=== PATIENT | male | born 1990 | race Asian ===

== ENCOUNTER 2017-01-04 17:12 | Observation (INO) | payer OTHER ==
[2017-01-04] MEDS ORDERED: NS 0.9% 1000 ML* 1,000 ML IV ONE (17:26)
[2017-01-04] MEDS ORDERED: Ondansetron INJ* 2 MG/ML VIAL IV ONE (18:01)
[2017-01-04] MEDS ORDERED: Ondansetron INJ* 2 MG/ML VIAL ONE (18:02)
[2017-01-04] MEDS ORDERED: Morphine INJ* 4 MG/ML 1 ML SYRINGE IV ONE (18:07)
[2017-01-04 18:11] LABS: Hematocrit 44 % (42-52); Hemoglobin 15.1 g/dl (14.0-18.0); Mean Corpuscular HGB Conc 34 g/dl (31-36); Mean Corpuscular Hemoglobin 31 pg (27-31); Mean Corpuscular Volume 90 fL (80-94); Mean Platelet Volume 9 um3 (7.4-10.4); Red Blood Count 4.91 10^6/ul (4.0-5.4); Red Cell Distribution Width 13 % (10.5-15); White Blood Count 16.9 10^3/ul (3.5-10.8)
[2017-01-04 18:14] LABS: Urine Bacteria Absent (Absent); Urine Bilirubin Negative (Negative); Urine Glucose Negative (Negative); Urine Nitrite Negative (Negative)
[2017-01-04 18:31] LABS: ALT 21 U/L (7-52); AST 17 U/L (13-39); Albumin 4.8 g/dL (3.2-5.2); Alkaline Phosphatase 56 U/L (34-104); Anion Gap 12 mmol/L (2-11); BUN/Creatinine Ratio 19.1 (8-20); Blood Urea Nitrogen 18 mg/dL (6-24); C Reactive Protein < 1.00 mg/L (< 5.00); CO2 Carbon Dioxide 23 mmol/L (22-32); Calcium 10.3 mg/dL (8.6-10.3); Chloride 103 mmol/L (101-111); EGFR African American 126.8 (>60); EGFR Non-African American 98.6 (>60); Globulin 2.7 g/dL (2-4); Glucose 120 mg/dL (70-100); Lipase 11 U/L (11.0-82.0); Potassium 3.5 mmol/L (3.5-5.0); Sodium 138 mmol/L (133-145); Total Protein 7.5 g/dL (6.4-8.9)
[2017-01-04] MEDS: NS 0.9% 1000 ML* 2,000 ML IV ONE ×2 (18:37→18:38)
[2017-01-04] MEDS ORDERED: Iohexol 300* (CONTRAST) 10 ML SDV IV ONE (19:06)
--- NOTE | 2017-01-04 20:58 | RAD ---
Indication: Right lower quadrant pain. Contrast: Administered 85.2 ml of OMNIPAQUE 300 mg/ml CT of the abdomen and pelvis was performed after oral and IV contrast administration. Coronal and sagittal reconstructed images were obtained. Lung bases demonstrate no pleural fluid, nodules or masses. Heart is of normal size without evidence of pericardial effusion. Liver is normal in size. No focal lesions or intrahepatic ductal dilatation is noted. The gallbladder demonstrates no calcified gallstones. No pericholecystic fluid or wall thickening is identified. The common duct is not dilated. The pancreas demonstrates no mass or pancreatic duct dilatation. The spleen is normal in size. No adrenal masses are noted. The kidneys demonstrate symmetric nephrograms. No hydronephrosis in either kidney is noted. No retroperitoneal lymphadenopathy is noted. Contrast is noted in the right colon. The distal half of the appendix may be mildly enlarged. The possibility of appendicitis involving the distal half of the appendix should BE considered. The proximal part appears to be filled with contrast and is thin-walled. The urinary bladder is unremarkable. No hernias are identified. There is stool throughout the colon. IMPRESSION: THERE IS SUGGESTION OF SOME INFLAMMATION OF THE DISTAL HALF OF THE APPENDIX AND THE POSSIBILITY OF APPENDICITIS OF THE DISTAL HALF OF THE APPENDIX SHOULD BE CONSIDERED. THE PROXIMAL HALF APPEARS TO BE OF NORMAL CALIBER. CLINICAL CORRELATION IS SUGGESTED. NO OTHER MASSES OR FLUID COLLECTIONS ARE NOTED.
--- NOTE | 2017-01-04 22:30 | ED ---
Girish Booker Nikita, scribed for Armin Purvis MD on 01/04/17 at 1815 . Abdominal Pain/Male - HPI Summary HPI Summary: This patient is a 26 year old M BIBA to [facility] with a chief complaint of RLQ abdominal pain since 1500. The CC is described as acute and constant. The patient rates the pain 10/10 in severity. Symptoms aggravated by palpation and movement of the R leg. Symptoms alleviated by nothing. Patient reports nausea, and vomiting. Patient denies testicular pain, urination symptoms, dysuria, hematuria, RUQ abdominal pain, R back pain. Pt denies PSHx. - History of Current Complaint Chief Complaint: EDAbdPain Stated Complaint: ABD PAIN Time Seen by Provider: 01/04/17 17:26 Hx Obtained From: Patient Onset/Duration: Sudden Onset, Lasting Hours - Since 1500 Timing: Constant Severity Initially: Severe Severity Currently: Severe Pain Intensity: 10 Pain Scale Used: 0-10 Numeric Location: Discrete At: RLQ Aggravating Factor(s): Movement - Movement of R leg, Other: - Palpation Alleviating Factor(s): Nothing Associated Signs And Symptoms: Positive: Other - Patient reports nausea and vomiting. Patient denies testicular pain, urination symptoms, dysuria, hematuria , no RUQ abdominal pain, R back pain. - Allergies/Home Medications Allergies/Adverse Reactions: Allergies Allergy/AdvReac Type Severity Reaction Status Date / Time No Known Allergies Allergy Verified 01/04/17 17:58 PMH/Surg Hx/FS Hx/Imm Hx Endocrine/Hematology History: Denies: Hx Diabetes Cardiovascular History: Denies: Hx Coronary Artery Disease, Hx Hypertension Infectious Disease History: No Infectious Disease History: Reports: Traveled Outside the [place] in Last 30 Days - Family History Known Family History: Negative: Cardiac Disease, Hypertension, Diabetes - Social History Alcohol Use: None Substance Use Type: Reports: None Smoking Status (MU): Never Smoked Tobacco Review of Systems Positive: Abdominal Pain - RLQ, Vomiting, Nausea, Other - NEGATIVE: RUQ pain Positive: no symptoms reported, other - NEGATIVE: testicular pain. Negative: dysuria, hematuria Positive: Other - NEGATIVE: right back pain All Other Systems Reviewed And Are Negative: Yes Physical Exam - Summary Physical Exam Summary: General: well-appearing, Moderate to severe pain distress Skin: warm, color reflects adequate perfusion, dry Head: normal Eyes: EOMI, LARISSA ENT: normal Neck: supple, nontender Respiratory: CTA, breath sounds present Cardiovascular: RRR Abdomen: soft, tender in RLQ Bowel: present, hyper bowel sounds Musculoskeletal: normal, strength/ROM intact Neurological: normal, sensory/motor intact, A&O x3 Psychological: affect/mood appropriate Triage Information Reviewed: Yes Vital Signs On Initial Exam: Initial Vitals Temp Pulse Resp BP Pulse Ox 98.8 F 100 20 124/72 100 01/04/17 17:17 01/04/17 17:17 01/04/17 17:17 01/04/17 17:17 01/04/17 17:17 Vital Signs Reviewed: Yes - José Luis Coma Scale Coma Scale Total: 15 Diagnostics - Vital Signs Vital Signs Temp Pulse Resp BP Pulse Ox 01/04/17 17:18 82 100 01/04/17 17:17 98.8 F 100 20 124/72 100 - Laboratory Lab Results: Lab Results 01/04/17 01/04/17 01/04/17 Range/Units 17:45 17:56 17:56 WBC (3.5-10.8) 10^3/ul RBC (4.0-5.4) 10^6/ul Hgb (14.0-18.0) g/dl Hct (42-52) % MCV (80-94) fL MCH (27-31) pg MCHC (31-36) g/dl RDW (10.5-15) % Plt Count (150-450) 10^3/ul MPV (7.4-10.4) um3 Neut % (Auto) (38-83) % Lymph % (Auto) (25-47) % Glacier % (Auto) (1-9) % Eos % (Auto) (0-6) % Baso % (Auto) (0-2) % Absolute Neuts (auto) (1.5-7.7) 10^3/ul Absolute Lymphs (auto) (1.0-4.8) 10^3/ul Absolute Monos (auto) (0-0.8) 10^3/ul Absolute Eos (auto) (0-0.6) 10^3/ul Absolute Basos (auto) (0-0.2) 10^3/ul Absolute Nucleated RBC 10^3/ul Nucleated RBC % INR (Anticoag Therapy) 0.98 (0.89-1.11) APTT 21.4 L (26.0-36.3) seconds Sodium 138 (133-145) mmol/L Potassium 3.5 (3.5-5.0) mmol/L Chloride 103 (101-111) mmol/L Carbon Dioxide 23 (22-32) mmol/L Anion Gap 12 H (2-11) mmol/L BUN 18 (6-24) mg/dL Creatinine 0.94 (0.67-1.17) mg/dL Est GFR ( Amer) 126.8 (>60) Est GFR (Non-Af Amer) 98.6 (>60) BUN/Creatinine Ratio 19.1 (8-20) Glucose 120 H (70-100) mg/dL Lactic Acid (0.5-2.0) mmol/L Calcium 10.3 (8.6-10.3) mg/dL Total Bilirubin 0.80 (0.2-1.0) mg/dL AST 17 (13-39) U/L ALT 21 (7-52) U/L Alkaline Phosphatase 56 (34-104) U/L C-Reactive Protein < 1.00 (< 5.00) mg/L Total Protein 7.5 (6.4-8.9) g/dL Albumin 4.8 (3.2-5.2) g/dL Globulin 2.7 (2-4) g/dL Albumin/Globulin Ratio 1.8 (1-3) Lipase 11 (11.0-82.0) U/L Urine Color Yellow Urine Appearance Clear Urine pH 8.0 (5-9) Ur Specific Cosmos 1.019 (1.010-1.030) Urine Protein 1+(30 mg/dl) H (Negative) Urine Ketones 1+ H (Negative) Urine Blood Negative (Negative) Urine Nitrate Negative (Negative) Urine Bilirubin Negative (Negative) Urine Urobilinogen Negative (Negative) Ur Leukocyte Esterase Negative (Negative) Urine WBC (Auto) Trace(0-5/hpf) (Absent) Urine RBC (Auto) 1+(3-5/hpf) H (Absent) Urine Bacteria Absent (Absent) Urine Glucose Negative (Negative) Urine Ascorbic Acid * H (Negative) 01/04/17 01/04/17 Range/Units 17:56 17:56 WBC 16.9 H (3.5-10.8) 10^3/ul RBC 4.91 (4.0-5.4) 10^6/ul Hgb 15.1 (14.0-18.0) g/dl Hct 44 (42-52) % MCV 90 (80-94) fL MCH 31 (27-31) pg MCHC 34 (31-36) g/dl RDW 13 (10.5-15) % Plt Count 231 (150-450) 10^3/ul MPV 9 (7.4-10.4) um3 Neut % (Auto) 87.9 H (38-83) % Lymph % (Auto) 7.3 L (25-47) % Glacier % (Auto) 4.1 (1-9) % Eos % (Auto) 0.1 (0-6) % Baso % (Auto) 0.6 (0-2) % Absolute Neuts (auto) 14.8 H (1.5-7.7) 10^3/ul Absolute Lymphs (auto) 1.2 (1.0-4.8) 10^3/ul Absolute Monos (auto) 0.7 (0-0.8) 10^3/ul Absolute Eos (auto) 0 (0-0.6) 10^3/ul Absolute Basos (auto) 0.1 (0-0.2) 10^3/ul Absolute Nucleated RBC 0.01 10^3/ul Nucleated RBC % 0 INR (Anticoag Therapy) (0.89-1.11) APTT (26.0-36.3) seconds Sodium (133-145) mmol/L Potassium (3.5-5.0) mmol/L Chloride (101-111) mmol/L Carbon Dioxide (22-32) mmol/L Anion Gap (2-11) mmol/L BUN (6-24) mg/dL Creatinine (0.67-1.17) mg/dL Est GFR ( Amer) (>60) Est GFR (Non-Af Amer) (>60) BUN/Creatinine Ratio (8-20) Glucose (70-100) mg/dL Lactic Acid 4.0 H* (0.5-2.0) mmol/L Calcium (8.6-10.3) mg/dL Total Bilirubin (0.2-1.0) mg/dL AST (13-39) U/L ALT (7-52) U/L Alkaline Phosphatase (34-104) U/L C-Reactive Protein (< 5.00) mg/L Total Protein (6.4-8.9) g/dL Albumin (3.2-5.2) g/dL Globulin (2-4) g/dL Albumin/Globulin Ratio (1-3) Lipase (11.0-82.0) U/L Urine Color Urine Appearance Urine pH (5-9) Ur Specific Cosmos (1.010-1.030) Urine Protein (Negative) Urine Ketones (Negative) Urine Blood (Negative) Urine Nitrate (Negative) Urine Bilirubin (Negative) Urine Urobilinogen (Negative) Ur Leukocyte Esterase (Negative) Urine WBC (Auto) (Absent) Urine RBC (Auto) (Absent) Urine Bacteria (Absent) Urine Glucose (Negative) Urine Ascorbic Acid (Negative) Result Diagrams: 01/04/17 17:56 01/04/17 17:56 Lab Statement: Any lab studies that have been ordered have been reviewed, and results considered in the medical decision making process. - CT Abd/Pel CT Interpretation Completed By: Radiologist - THERE IS SUGGESTION OF SOME INFLAMMATION OF THE DISTAL HALF OF THE APPENDIX AND THE POSSIBILITY OF APPENDICITIS OF THE DISTAL HALF OF THE APPENDIX SHOULD BE CONSIDERED. THE PROXIMAL HALF APPEARS TO BE OF NORMAL CALIBER. CLINICAL CORRELATION IS SUGGESTED. NO OTHER MASSES OR FLUID COLLECTIONS ARE NOTED. ED physician has reviewed this radiology report and agrees. Re-Evaluation - Re-Evaluation First Eval Re-Evaluation Time: 21:48 Change: Improved - 2/10 Comment: Discuss with pt. Pt states his pain is now a 2/10. Pt is mildly tender at RLQ. Abdominal Pain Fem Course/Dx - Course Course Of Treatment: PAIN DECREASED IN ED BUT, PATIENT STILL MILDLY TENDER TO PALPATION IN RLQ. DISCUSSED WITH DR ADAMS, HE WILL ADMIT FOR OBSERVATION. THIS WAS ALL DISCUSSED WITH THE PATIENT/. - Diagnoses Provider Diagnoses: Abdominal pain - Provider Notifications Discussed Care Of Patient With: Salvatore Adams Time Discussed With Above Provider: 21:42 Instructed by Provider To: Other - Consulted Dr. Adams about the pt who says he will look at the pt's CT report first. Consulted Dr. Adams about the pt at 2156 who says he will observe him overnight to see if his condition improves. Discharge - Discharge Plan Condition: Stable Disposition: ADMITTED TO [facility] Referrals: WILLIAM Sanders [Primary Care Provider] - The documentation as recorded by the Girihs quesada Nikita accurately reflects the service I personally performed and the decisions made by me, Armin Purvis MD.
[2017-01-04] MEDS ORDERED: Ketorolac INJ* 15 MG/ML 1 ML VIAL IV PUSH PRN (23:44)
[2017-01-04] MEDS ORDERED: Ondansetron INJ* 2 MG/ML VIAL IV PRN (23:44)
[2017-01-05 05:15] LABS: Hematocrit 38 % (42-52); Hemoglobin 12.8 g/dl (14.0-18.0); Mean Corpuscular HGB Conc 34 g/dl (31-36); Mean Corpuscular Hemoglobin 31 pg (27-31); Mean Corpuscular Volume 90 fL (80-94); Mean Platelet Volume 8 um3 (7.4-10.4); Red Blood Count 4.19 10^6/ul (4.0-5.4); Red Cell Distribution Width 13 % (10.5-15); White Blood Count 8.8 10^3/ul (3.5-10.8)
--- NOTE | 2017-01-05 08:51 | HP ---
CC: [facility]* HISTORY AND PHYSICAL: DATE OF ADMISSION: 01/05/17 CHIEF COMPLAINT: Right localized abdominal pain. 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 He was in class at the time and reports that the pain was very sudden onset and he had never experienced a similar pain in the past. He went to the bathroom to try to void, urinate, but he did not have any improvement in his pain, and in fact the pain was severe and led his professor to direct him to the emergency room. He was brought to the emergency room and there, reports that while he was waiting for a period of hours, his pain became at times unbearable and brought him to his knees. He notes that after 5 or 6 hours, his pain resolved completely. He did not require any pain medication. He did not have any issues with fevers or chills. He had some nausea, reports that he did not eat anything from about 12 p.m. on 01/04/17. He had noted his urine was yellow, denies any hematuria or dysuria. The emergency room data showed elevation of his WBCs to 16.9, and he was sent for CT scan of the abdomen and pelvis with oral and IV contrast. This was notable for the distal half of the appendix possibly being enlarged and possibly the possibility of appendicitis, but otherwise the CT scan was normal. Of note, the patient's urinalysis did show 1 + rbc's, 1+ protein, and ascorbic acid present. A surgical admission was requested. The patient at present denies any pain, denies nausea or vomiting, denies any fevers or chills. He has not required any pain medication, and he reports he has voided multiple times without difficulty. He reports his pain seemed to resolve suddenly as it had started. PAST MEDICAL HISTORY: The patient has a history of tachycardia, states his resting heart rate is usually about 100 beats per minute. PAST SURGICAL HISTORY: None. MEDICATIONS: None. ALLERGIES: None. FAMILY HISTORY: Father has rapid heart rate. SOCIAL HISTORY: The patient is a student at [employer]. He does not smoke, does not drink alcohol or use drugs. REVIEW OF SYSTEMS: A 12-point review of systems is completed and is significant for the above-mentioned issues, otherwise is negative. PHYSICAL EXAMINATION VITAL SIGNS: Temperature 99.4, pulse 106, respirations 16, blood pressure 124/ 57, O2 sat 97%. HEENT: Head normocephalic and atraumatic. Sclerae anicteric and mucous membranes moist. No otorrhea. No rhinorrhea. NECK: Symmetrical with trachea midline. No palpable lymphadenopathy or masses. LUNGS: Clear to auscultation bilaterally without wheezes, rales, or rhonchi. HEART: Regular S1, S2. No murmurs, rubs, or gallops appreciated. He is tachycardic. ABDOMEN: Without scars. It is nondistended. Bowel sounds are present. It is soft, nontender, and there are no palpable masses. There is no hepatosplenomegaly. EXTREMITIES: Warm without cyanosis, clubbing, or edema. DIAGNOSTIC STUDIES/LAB DATA: Repeat WBCs are 8.8, hemoglobin of 12.8, hematocrit of 38, platelets 210, normal differential. Chemistries, on initial evaluation, he was noted to have glucose of 120. The remaining comprehensive metabolic panel was within normal range. CRP was normal less than 1. Lactic acid was 4.0 on initial presentation and this morning is 0.8. CT scan images were reviewed and findings as reported. IMPRESSION: A 26-year-old male with a sudden onset and sudden resolution of right-sided abdominal pain with episode of nausea and vomiting, which has resolved. There is evidence of hematuria based on his urinalysis. These findings are most suspicious for nephrolithiasis. There is no clinical concern for acute appendicitis at this time. PLAN/RECOMMENDATION: The patient will be allowed to advance his diet and will be discharged to follow up with his primary care provider. He can follow up with [facility] as needed. [id number]/[facility] #: [id number] [facility]
[2017-01-05 12:44] VITALS: BP 138/80
--- NOTE | 2017-01-06 04:29 | DS ---
CC: [facility]* DISCHARGE SUMMARY: DATE OF ADMISSION: 01/04/17 DATE OF DISCHARGE: 01/05/17 ATTENDING SURGEON: Dr. Salvatore Adams * (DICTATED BY GAY RUFF) HOSPITAL COURSE: Please refer to admission history and physical for admission details. The patient has been asymptomatic and pain-free since arrival to the floor. He has not required any analgesics. He has tolerated diet this morning without nausea or vomiting. He has voided well since admission. PHYSICAL EXAMINATION: Vital signs at morning of discharge, temperature 97.7, blood pressure 138/80, pulse 96, respirations 16, room air saturation 97%. Physical exam per Dr. Adams not repeated. IMPRESSION: Abdominal pain, resolved; possible nephrolithiasis based on characteristics of the pain and the presence of microscopic hematuria. PLAN: Discharge. The patient was advised to follow up with the [facility] and specifically to have a repeat urinalysis performed. At this point, we will defer referral to Urology unless he has ongoing or recurrent symptoms. He is advised to maintain good dehydration. GAY RUFF [id number]/[facility] #: [id number] [facility]
== END 2017-01-05 14:05 | disposition home or self-care (01) ==
LOC: ED 17:12 → INTOOBSV 22:05 → SSU 22:05
PROVIDERS: ADMIT Surgery; ATTEND Surgery
DX: R10.31 Right lower quadrant pain (principal); R11.2 Nausea with vomiting, unspecified; R31.29 Other microscopic hematuria
CPT/HCPCS: 36415; 74177; 80053; 81003; 81015; 83605; 83690; 85025; 85610; 85730; 86140; 96374; 96375; 99284; G0378; J2270; J2405; Q9967